=== PATIENT | male | born 1965 | race Hispanic/Latino ===

== ENCOUNTER 2024-04-22 20:36 | Emergency (ER) | payer SELFPAY ==
[2024-04-22] MEDS ORDERED: IBUPROFEN 400 MG TAB ONE (20:56)
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
[2024-04-23 02:53] VITALS: TEMP 98.1; O2SAT 99
[2024-04-23 02:54] VITALS: BP 133/88
== END 2024-04-22 22:50 | disposition home or self-care (01) ==
LOC: ER 20:36
DX: S16.1XXA Strain of muscle, fascia and tendon at neck level, initial encounter (principal); V49.50XA Passenger injured in collision with unspecified motor vehicles in traffic accident, initial encounter
CPT/HCPCS: 70450; 71045; 72125; 99284